=== PATIENT | male | born 1965 | race Caucasian/White ===

== ENCOUNTER 2016-07-03 16:42 | Inpatient (IN) | payer MEDICARE, MEDICAID ==
[~2016-07-03] VITALS: Ht 177.8 cm; Wt 82.9 kg
[~2016-07-03 16:42] MED LIST: DIVA500T35 PO; OLAN10TA3 PO; OLAN5TAB2 PO; TRAZ-147 PO
[2016-07-03] MEDS ORDERED: INFLUENZA VIRUS VACCINE QVS 2016-17 (3YR+)/PF 60 MCG/0.5 ML SYRINGE IM ONE (17:30)
[2016-07-03] MEDS ORDERED: PNEUMOCOCCAL VACCINE POLYVALENT 0.5 ML VIAL [PPSV23] IM ONE (17:30)
[2016-07-03 17:42] VITALS: BP 118/72
[2016-07-03] MEDS: LORazepam 2 MG TABLET PO PRN (18:25)
[2016-07-03] MEDS: HALOPERIDOL 5 MG TABLET PO PRN (18:25)
[2016-07-03] MEDS ORDERED: NYSTATIN 30 GM CREAM TP PRN (18:30)
[2016-07-04 07:14] VITALS: BP 108/73
[2016-07-04 08:16] VITALS: BP 110/64
[2016-07-04 08:19] LABS: BASOPHILS % (AUTO) 0.7 % (0.0-2.0); EOSINOPHILS % (AUTO) 2.6 % (1.0-6.0); HEMATOCRIT 43.2 % (41-53); HEMOGLOBIN 14.2 g/dL (13.5-17.5); LYMPHOCYTES # (AUTO) 1.7 K/uL (1.0-4.8); LYMPHOCYTES % (AUTO) 23.1 % (22.0-44.0); MEAN CORPUSCULAR HEMOGLOBIN 29.2 pg (26.0-34.0); MEAN CORPUSCULAR HGB CONC 32.9 G/dL (31.0-37.0); MEAN CORPUSCULAR VOLUME 89 fL (80-100); MONOCYTES # (AUTO) 0.6 K/uL (0.1-1.0); MONOCYTES % (AUTO) 8.2 % (2.0-9.0); NEUTROPHILS # (AUTO) 4.7 K/uL (1.8-7.7); NEUTROPHILS % (AUTO) 65.4 % (40.0-70.0); PLATELET COUNT (AUTO) 283 K/uL (150-450); RED BLOOD CELL COUNT(AUTO) 4.87 MIL/uL (4.50-5.90); RED CELL DISTRIBUTION WIDTH 13.3 % (11.5-14.5); WHITE BLOOD COUNT (AUTO) 7.3 K/uL (4.5-11.0)
[2016-07-04 08:42] LABS: HEMOGLOBIN A1C 5.7 % (4.5-6.2)
[2016-07-04 09:14] LABS: ALANINE AMINOTRANSFERASE 21 U/L (12-78); ALBUMIN 3.3 g/dL (3.4-5.0); ANION GAP 6 mmol/L (8-16); ASPARTATE AMINOTRANSFERASE 16 U/L (15-37); BILIRUBIN,TOTAL 0.4 mg/dL (0.1-1.0); CALCIUM, TOTAL 8.9 mg/dL (8.8-10.5); CARBON DIOXIDE 32 mmol/L (22-29); CHLORIDE 101 mmol/L (98-107); CHOL/HDL RATIO 3.7 (4.2-7.3); GLOMERULAR FILTR. RATE CALC > 60 mL/min (>60); SODIUM SERUM 139 mmol/L (136-145); TOTAL PROTEIN, SERUM 6.2 g/dL (6.4-8.2); UREA NITROGEN, BLOOD 16 mg/dL (7-18)
[2016-07-04 09:30] LABS: APPEARANCE,URINE CLOUDY (CLEAR); GLUCOSE, URINE (UA) NEGATIVE (NEGATIVE); KETONES,URINE TRACE mg/dL (NEGATIVE); LEUKOCYTE ESTERASE ,URINE TRACE (NEGATIVE); OCCULT BLOOD,URINE NEGATIVE (NEGATIVE); PH,URINE 5.5 (5.0-8.0); PROTEIN,URINE NEGATIVE (NEGATIVE)
[2016-07-04 09:31] LABS: ADD UA MICROSCOPIC YES
[2016-07-04 09:33] LABS: RBC,URINE None Seen /HPF (0-2); SQUAMOUS EPITHELIAL CELL,UR Few /LPF (None Seen); WBC,URINE 0-2 /HPF (0-5)
[2016-07-04 10:17] LABS: THYROID STIMULATING HORMONE 1.07 uIU/mL (0.36-3.74)
[2016-07-04] MEDS: HALOPERIDOL 5 MG TABLET PO PRN ×2 (10:44→16:44)
[2016-07-04] MEDS: LORazepam 2 MG TABLET PO PRN ×2 (10:44→16:44)
[2016-07-04] MEDS: DIVALPROEX SODIUM 500 MG DR TABLET PO SCH ×2 (13:10→16:44)
[2016-07-04] MEDS ORDERED: IBUPROFEN 400 MG TABLET PO PRN (13:45)
[2016-07-04] MEDS ORDERED: ACETAMINOPHEN 325 MG TABLET PO PRN (13:45)
[2016-07-04] MEDS ORDERED: ALBUTEROL SULFATE HFA 90 MCG/PUFF 8 GM INHALER IH PRN (13:45)
[2016-07-04 16:03] VITALS: BP 118/70
[2016-07-04] MEDS: CIPROFLOXACIN HCL 250 MG TABLET PO SCH (16:44)
[2016-07-04] MEDS: OLANZapine 10 MG TABLET PO SCH (20:37)
[2016-07-05 06:50] VITALS: BP 117/67
[2016-07-05 08:38] VITALS: BP 114/65
[2016-07-05] MEDS: HALOPERIDOL 5 MG TABLET PO PRN ×2 (08:52→16:40)
[2016-07-05] MEDS: LORazepam 2 MG TABLET PO PRN ×2 (08:52→16:40)
[2016-07-05] MEDS: CIPROFLOXACIN HCL 250 MG TABLET PO SCH ×2 (08:52→16:40)
[2016-07-05] MEDS: DIVALPROEX SODIUM 500 MG DR TABLET PO SCH ×3 (08:52→16:40)
[2016-07-05 10:29] LABS: HEMOGLOBIN A1C 5.8 % (4.5-6.2)
[2016-07-05 10:39] LABS: CHOL/HDL RATIO 3.5 (4.2-7.3); THYROID STIMULATING HORMONE 2.32 uIU/mL (0.36-3.74)
[2016-07-05 16:08] VITALS: BP 122/74
[2016-07-05] MEDS: OLANZapine 10 MG TABLET PO SCH (20:29)
[2016-07-06 06:25] VITALS: BP 122/70
[2016-07-06] MEDS: DIVALPROEX SODIUM 500 MG DR TABLET PO SCH ×3 (08:09→17:00)
[2016-07-06] MEDS: CIPROFLOXACIN HCL 250 MG TABLET PO SCH ×2 (08:09→17:00)
[2016-07-06 08:49] VITALS: BP 116/61
[2016-07-06] MEDS: NICOTINE 21 MG/24 HOUR PATCH TD SCH (11:09)
[2016-07-06] MEDS: OLANZapine 10 MG TABLET PO SCH (21:00)
[2016-07-07] MEDS: DIVALPROEX SODIUM 500 MG DR TABLET PO SCH ×3 (09:00→17:00)
[2016-07-07] MEDS: CIPROFLOXACIN HCL 250 MG TABLET PO SCH ×2 (09:00→17:00)
[2016-07-07] MEDS: NICOTINE 21 MG/24 HOUR PATCH TD SCH (09:00)
[2016-07-07] MEDS: OLANZapine 10 MG TABLET PO SCH (21:00)
[2016-07-08 06:56] VITALS: BP 110/62
[2016-07-08 08:12] VITALS: BP 110/60
[2016-07-08] MEDS: CIPROFLOXACIN HCL 250 MG TABLET PO SCH ×2 (09:00→16:14)
[2016-07-08] MEDS: DIVALPROEX SODIUM 500 MG DR TABLET PO SCH ×3 (09:00→16:13)
[2016-07-08] MEDS: NICOTINE 21 MG/24 HOUR PATCH TD SCH (10:07)
[2016-07-08] MEDS: HALOPERIDOL 5 MG TABLET PO PRN ×2 (10:08→16:36)
[2016-07-08] MEDS: LORazepam 2 MG TABLET PO PRN ×2 (10:08→16:14)
[2016-07-08 16:00] VITALS: BP 104/60
[2016-07-08] MEDS: OLANZapine 10 MG TABLET PO SCH (20:11)
[2016-07-08] MEDS: ZOLPIDEM TARTRATE 10 MG TABLET PO PRN (21:26)
[2016-07-09 06:30] VITALS: BP 116/76
[2016-07-09 08:11] VITALS: BP 101/58
[2016-07-09] MEDS: CIPROFLOXACIN HCL 250 MG TABLET PO SCH ×2 (09:42→17:18)
[2016-07-09] MEDS: NICOTINE 21 MG/24 HOUR PATCH TD SCH (09:43)
[2016-07-09] MEDS: DIVALPROEX SODIUM 500 MG DR TABLET PO SCH ×3 (09:43→17:18)
[2016-07-09 16:07] VITALS: BP 161/85
[2016-07-09] MEDS: LORazepam 2 MG TABLET PO PRN (17:18)
[2016-07-09] MEDS: HALOPERIDOL 5 MG TABLET PO PRN (17:18)
[2016-07-09] MEDS: OLANZapine 10 MG TABLET PO SCH (20:34)
[2016-07-10 06:25] VITALS: BP 110/60
[2016-07-10 08:11] VITALS: BP 108/62
[2016-07-10] MEDS: NICOTINE 21 MG/24 HOUR PATCH TD SCH (09:46)
[2016-07-10] MEDS: DIVALPROEX SODIUM 500 MG DR TABLET PO SCH ×3 (09:46→17:05)
[2016-07-10] MEDS: CIPROFLOXACIN HCL 250 MG TABLET PO SCH ×2 (09:46→17:05)
[2016-07-10] MEDS: LORazepam 2 MG TABLET PO PRN ×2 (09:46→17:06)
[2016-07-10] MEDS: HALOPERIDOL 5 MG TABLET PO PRN ×2 (09:46→17:06)
[2016-07-10 16:14] VITALS: BP 115/76
[2016-07-10] MEDS: OLANZapine 10 MG TABLET PO SCH (20:28)
[2016-07-11 07:05] VITALS: BP 109/61
[2016-07-11 08:11] VITALS: BP 105/57
[2016-07-11] MEDS: CIPROFLOXACIN HCL 250 MG TABLET PO SCH ×2 (09:26→16:43)
[2016-07-11] MEDS: DIVALPROEX SODIUM 500 MG DR TABLET PO SCH ×3 (09:26→16:43)
[2016-07-11] MEDS: NICOTINE 21 MG/24 HOUR PATCH TD SCH (09:26)
[2016-07-11 16:11] VITALS: BP 122/71
[2016-07-11] MEDS: LORazepam 2 MG TABLET PO PRN (16:43)
[2016-07-11] MEDS: HALOPERIDOL 5 MG TABLET PO PRN (16:43)
[2016-07-11] MEDS: OLANZapine 10 MG TABLET PO SCH (20:55)
[2016-07-12 05:41] VITALS: BP 115/69
[2016-07-12 08:20] VITALS: BP 117/57
[2016-07-12] MEDS: HALOPERIDOL 5 MG TABLET PO PRN (08:32)
[2016-07-12] MEDS: DIVALPROEX SODIUM 500 MG DR TABLET PO SCH ×3 (08:32→17:35)
[2016-07-12] MEDS: CIPROFLOXACIN HCL 250 MG TABLET PO SCH ×2 (08:32→17:35)
[2016-07-12] MEDS: NICOTINE 21 MG/24 HOUR PATCH TD SCH (08:33)
[2016-07-12 16:10] VITALS: BP 135/69
[2016-07-12] MEDS: LORazepam 2 MG TABLET PO PRN (17:35)
[2016-07-12] MEDS: ZOLPIDEM TARTRATE 10 MG TABLET PO PRN (20:44)
[2016-07-12] MEDS: OLANZapine 10 MG TABLET PO SCH (20:44)
[2016-07-13 05:37] VITALS: BP 132/75
[2016-07-13 08:32] VITALS: BP 104/61
[2016-07-13] MEDS: NICOTINE 21 MG/24 HOUR PATCH TD SCH (09:56)
[2016-07-13] MEDS: CIPROFLOXACIN HCL 250 MG TABLET PO SCH ×2 (09:56→17:32)
[2016-07-13] MEDS: DIVALPROEX SODIUM 500 MG DR TABLET PO SCH ×3 (09:56→17:32)
[2016-07-13 16:27] VITALS: BP 125/66
[2016-07-13] MEDS: OLANZapine 10 MG TABLET PO SCH (20:20)
[2016-07-13] MEDS: ZOLPIDEM TARTRATE 10 MG TABLET PO PRN (20:20)
[2016-07-14 00:20] VITALS: BP 126/75
[2016-07-14] MEDS: LORazepam 2 MG TABLET PO PRN ×3 (00:25→16:45)
[2016-07-14 08:37] VITALS: BP 118/73
[2016-07-14] MEDS: HALOPERIDOL 5 MG TABLET PO PRN ×2 (10:05→16:45)
[2016-07-14] MEDS: NICOTINE 21 MG/24 HOUR PATCH TD SCH (10:05)
[2016-07-14] MEDS: CIPROFLOXACIN HCL 250 MG TABLET PO SCH ×2 (10:05→16:45)
[2016-07-14] MEDS: DIVALPROEX SODIUM 500 MG DR TABLET PO SCH ×3 (10:05→16:45)
[2016-07-14 16:18] VITALS: BP 123/61
[2016-07-14] MEDS: ZOLPIDEM TARTRATE 10 MG TABLET PO PRN (20:52)
[2016-07-14] MEDS: OLANZapine 10 MG TABLET PO SCH (20:52)
[2016-07-15 01:00] VITALS: BP 108/74
[2016-07-15] MEDS: HALOPERIDOL 5 MG TABLET PO PRN ×2 (01:04→17:14)
[2016-07-15] MEDS: LORazepam 2 MG TABLET PO PRN ×2 (01:04→17:14)
[2016-07-15 08:11] VITALS: BP 101/65
[2016-07-15] MEDS: DIVALPROEX SODIUM 500 MG DR TABLET PO SCH ×3 (09:51→17:14)
[2016-07-15] MEDS: NICOTINE 21 MG/24 HOUR PATCH TD SCH (09:51)
[2016-07-15 16:00] VITALS: BP 110/68
[2016-07-15] MEDS: OLANZapine 10 MG TABLET PO SCH (20:37)
[2016-07-15] MEDS: ZOLPIDEM TARTRATE 10 MG TABLET PO PRN (20:37)
[2016-07-16 02:49] VITALS: BP 108/72
[2016-07-16] MEDS: LORazepam 2 MG TABLET PO PRN ×3 (02:52→16:49)
[2016-07-16 08:11] VITALS: BP 112/65
[2016-07-16] MEDS: DIVALPROEX SODIUM 500 MG DR TABLET PO SCH ×3 (08:16→16:49)
[2016-07-16] MEDS: NICOTINE 21 MG/24 HOUR PATCH TD SCH (08:17)
[2016-07-16 16:40] VITALS: BP 116/68
[2016-07-16] MEDS: HALOPERIDOL 5 MG TABLET PO PRN (16:49)
[2016-07-16] MEDS: OLANZapine 10 MG TABLET PO SCH (20:25)
[2016-07-17] MEDS: ZOLPIDEM TARTRATE 10 MG TABLET PO PRN (00:08)
[2016-07-17] MEDS: LORazepam 2 MG TABLET PO PRN ×2 (00:08→17:13)
[2016-07-17 00:09] VITALS: BP 109/79
[2016-07-17] MEDS: HALOPERIDOL 5 MG TABLET PO PRN ×2 (00:09→17:13)
[2016-07-17 08:40] VITALS: BP 93/50
[2016-07-17] MEDS: DIVALPROEX SODIUM 500 MG DR TABLET PO SCH ×3 (10:03→16:52)
[2016-07-17] MEDS: NICOTINE 21 MG/24 HOUR PATCH TD SCH (10:03)
[2016-07-17 16:12] VITALS: BP 128/74
[2016-07-17] MEDS: OLANZapine 10 MG TABLET PO SCH (20:52)
[2016-07-18 05:30] VITALS: BP 120/64
[2016-07-18 08:11] VITALS: BP 115/64
[2016-07-18] MEDS: NICOTINE 21 MG/24 HOUR PATCH TD SCH (09:32)
[2016-07-18] MEDS: HALOPERIDOL 5 MG TABLET PO PRN ×2 (09:33→16:39)
[2016-07-18] MEDS: LORazepam 2 MG TABLET PO PRN ×3 (09:33→20:49)
[2016-07-18] MEDS: DIVALPROEX SODIUM 500 MG DR TABLET PO SCH ×3 (09:33→16:39)
[2016-07-18 16:12] VITALS: BP 125/73
[2016-07-18] MEDS: ZOLPIDEM TARTRATE 10 MG TABLET PO PRN (20:49)
[2016-07-18] MEDS: OLANZapine 10 MG TABLET PO SCH (21:00)
[2016-07-19 05:27] VITALS: BP 143/67
[2016-07-19 08:11] VITALS: BP 140/84
[2016-07-19] MEDS: LORazepam 2 MG TABLET PO PRN ×2 (10:00→16:36)
[2016-07-19] MEDS: HALOPERIDOL 5 MG TABLET PO PRN ×2 (10:00→16:36)
[2016-07-19] MEDS: DIVALPROEX SODIUM 500 MG DR TABLET PO SCH ×3 (10:00→16:36)
[2016-07-19] MEDS: NICOTINE 21 MG/24 HOUR PATCH TD SCH (10:01)
[2016-07-19 16:30] VITALS: BP 108/85
[2016-07-19] MEDS: OLANZapine 10 MG TABLET PO SCH (20:41)
[2016-07-20] MEDS: LORazepam 2 MG TABLET PO PRN ×3 (00:07→16:35)
[2016-07-20] MEDS: ZOLPIDEM TARTRATE 10 MG TABLET PO PRN (00:07)
[2016-07-20] MEDS: HALOPERIDOL 5 MG TABLET PO PRN ×2 (00:07→16:35)
[2016-07-20 00:08] VITALS: BP 112/62
[2016-07-20 08:11] VITALS: BP 107/68
[2016-07-20] MEDS: NICOTINE 21 MG/24 HOUR PATCH TD SCH (08:35)
[2016-07-20] MEDS: DIVALPROEX SODIUM 500 MG DR TABLET PO SCH ×3 (08:35→16:35)
[2016-07-20 16:57] VITALS: BP 122/68
[2016-07-20] MEDS: OLANZapine 10 MG TABLET PO SCH (20:12)
[2016-07-21 00:06] VITALS: BP 108/66
[2016-07-21] MEDS: ZOLPIDEM TARTRATE 10 MG TABLET PO PRN (00:10)
[2016-07-21 08:10] VITALS: BP 115/68
[2016-07-21] MEDS: HALOPERIDOL 5 MG TABLET PO PRN ×2 (09:35→16:25)
[2016-07-21] MEDS: NICOTINE 21 MG/24 HOUR PATCH TD SCH (09:35)
[2016-07-21] MEDS: LORazepam 2 MG TABLET PO PRN ×2 (09:35→16:25)
[2016-07-21] MEDS: DIVALPROEX SODIUM 500 MG DR TABLET PO SCH ×3 (09:35→16:25)
[2016-07-21 17:03] VITALS: BP 114/66
[2016-07-21] MEDS: OLANZapine 10 MG TABLET PO SCH (20:44)
[2016-07-22 00:20] VITALS: BP 108/68
[2016-07-22] MEDS: LORazepam 2 MG TABLET PO PRN ×3 (07:14→17:18)
[2016-07-22] MEDS: HALOPERIDOL 5 MG TABLET PO PRN ×3 (07:14→17:18)
[2016-07-22 08:11] VITALS: BP 128/56
[2016-07-22] MEDS: NICOTINE 21 MG/24 HOUR PATCH TD SCH (09:27)
[2016-07-22] MEDS: DIVALPROEX SODIUM 500 MG DR TABLET PO SCH ×3 (09:27→16:38)
[2016-07-22 16:11] VITALS: BP 126/60
[2016-07-22] MEDS: OLANZapine 10 MG TABLET PO SCH (20:56)
[2016-07-23 03:45] VITALS: BP 106/68
[2016-07-23] MEDS: LORazepam 2 MG TABLET PO PRN ×3 (03:55→16:12)
[2016-07-23] MEDS: HALOPERIDOL 5 MG TABLET PO PRN ×3 (03:55→16:12)
[2016-07-23 08:11] VITALS: BP 134/75
[2016-07-23] MEDS: NICOTINE 21 MG/24 HOUR PATCH TD SCH (09:35)
[2016-07-23] MEDS: DIVALPROEX SODIUM 500 MG DR TABLET PO SCH ×3 (09:35→16:50)
[2016-07-23] MEDS ORDERED: TUBERCULIN, PURIFIED PROTEIN DERIVATIVE 5 TU/0.1 ML SYG ID ONE (15:00)
[2016-07-23 16:00] VITALS: BP 130/84
[2016-07-23] MEDS: OLANZapine 10 MG TABLET PO SCH (20:38)
[2016-07-24 06:00] VITALS: BP 122/77
[2016-07-24] MEDS: LORazepam 2 MG TABLET PO PRN (06:45)
[2016-07-24] MEDS: HALOPERIDOL 5 MG TABLET PO PRN (06:46)
[2016-07-24 08:25] VITALS: BP 103/60
[2016-07-24] MEDS: NICOTINE 21 MG/24 HOUR PATCH TD SCH (08:44)
[2016-07-24] MEDS: DIVALPROEX SODIUM 500 MG DR TABLET PO SCH ×3 (08:44→16:51)
[2016-07-24 16:11] VITALS: BP 114/76
[2016-07-24 17:33] VITALS: BP 116/66
[2016-07-24] MEDS: OLANZapine 10 MG TABLET PO SCH (20:46)
[2016-07-24] MEDS: ZOLPIDEM TARTRATE 10 MG TABLET PO PRN (20:46)
[2016-07-25 01:29] VITALS: BP 114/68
[2016-07-25 08:11] VITALS: BP 112/70
[2016-07-25] MEDS: NICOTINE 21 MG/24 HOUR PATCH TD SCH (09:05)
[2016-07-25] MEDS: DIVALPROEX SODIUM 500 MG DR TABLET PO SCH ×3 (09:05→16:47)
[2016-07-25] MEDS: LORazepam 2 MG TABLET PO PRN ×2 (09:09→16:47)
[2016-07-25] MEDS: HALOPERIDOL 5 MG TABLET PO PRN ×2 (09:09→16:47)
[2016-07-25 16:42] VITALS: BP 136/84
[2016-07-25] MEDS: OLANZapine 10 MG TABLET PO SCH (20:41)
[2016-07-26 07:10] VITALS: BP 129/81
[2016-07-26 08:11] VITALS: BP 112/60
[2016-07-26] MEDS: DIVALPROEX SODIUM 500 MG DR TABLET PO SCH ×3 (09:16→16:00)
[2016-07-26] MEDS: NICOTINE 21 MG/24 HOUR PATCH TD SCH (09:16)
[2016-07-26] MEDS: HALOPERIDOL 5 MG TABLET PO PRN (16:00)
[2016-07-26] MEDS: LORazepam 2 MG TABLET PO PRN (16:00)
[2016-07-26 16:14] VITALS: BP 122/62
[2016-07-26] MEDS: OLANZapine 10 MG TABLET PO SCH (20:25)
[2016-07-26] MEDS: ZOLPIDEM TARTRATE 10 MG TABLET PO PRN (21:03)
[2016-07-27 06:25] VITALS: BP 126/78
[2016-07-27 08:34] VITALS: BP 123/68
[2016-07-27] MEDS: DIVALPROEX SODIUM 500 MG DR TABLET PO SCH ×3 (08:42→16:30)
[2016-07-27] MEDS: NICOTINE 21 MG/24 HOUR PATCH TD SCH (08:42)
[2016-07-27] MEDS: LORazepam 2 MG TABLET PO PRN ×2 (09:06→16:30)
[2016-07-27] MEDS: HALOPERIDOL 5 MG TABLET PO PRN ×2 (09:06→16:30)
[2016-07-27 16:00] VITALS: BP 138/76
[2016-07-27] MEDS: ZOLPIDEM TARTRATE 10 MG TABLET PO PRN (21:18)
[2016-07-27] MEDS: OLANZapine 10 MG TABLET PO SCH (21:18)
[2016-07-28 00:14] VITALS: BP 116/70
[2016-07-28 08:09] VITALS: BP 119/63
[2016-07-28] MEDS: DIVALPROEX SODIUM 500 MG DR TABLET PO SCH ×3 (08:58→16:49)
[2016-07-28] MEDS: NICOTINE 21 MG/24 HOUR PATCH TD SCH (08:58)
[2016-07-28 16:14] VITALS: BP 137/80
[2016-07-28] MEDS: OLANZapine 10 MG TABLET PO SCH (20:15)
[2016-07-29 01:58] VITALS: BP 135/94
[2016-07-29] MEDS: ZOLPIDEM TARTRATE 10 MG TABLET PO PRN ×2 (01:58→21:17)
[2016-07-29] MEDS: HALOPERIDOL 5 MG TABLET PO PRN ×3 (01:58→16:10)
[2016-07-29] MEDS: LORazepam 2 MG TABLET PO PRN ×3 (01:58→16:10)
[2016-07-29] MEDS: DIVALPROEX SODIUM 500 MG DR TABLET PO SCH ×3 (08:19→16:10)
[2016-07-29] MEDS: NICOTINE 21 MG/24 HOUR PATCH TD SCH (08:24)
[2016-07-29 08:27] VITALS: BP 100/60
[2016-07-29 16:00] VITALS: BP 108/60
[2016-07-29] MEDS: OLANZapine 10 MG TABLET PO SCH (20:33)
[2016-07-30 03:17] VITALS: BP 125/67
[2016-07-30 08:11] VITALS: BP 112/68
[2016-07-30] MEDS: DIVALPROEX SODIUM 500 MG DR TABLET PO SCH ×3 (09:07→16:12)
[2016-07-30] MEDS: NICOTINE 21 MG/24 HOUR PATCH TD SCH (09:07)
[2016-07-30 16:00] VITALS: BP 129/75
[2016-07-30] MEDS: OLANZapine 10 MG TABLET PO SCH (20:33)
[2016-07-30] MEDS: ZOLPIDEM TARTRATE 10 MG TABLET PO PRN (21:25)
[2016-07-31 06:35] VITALS: BP 125/77
[2016-07-31] MEDS: HALOPERIDOL 5 MG TABLET PO PRN ×2 (06:47→13:42)
[2016-07-31] MEDS: LORazepam 2 MG TABLET PO PRN ×2 (06:47→13:42)
[2016-07-31 08:11] VITALS: BP 100/50
[2016-07-31] MEDS: NICOTINE 21 MG/24 HOUR PATCH TD SCH (09:43)
[2016-07-31] MEDS: DIVALPROEX SODIUM 500 MG DR TABLET PO SCH ×3 (09:43→16:15)
[2016-07-31 16:00] VITALS: BP 135/83
[2016-07-31] MEDS: OLANZapine 10 MG TABLET PO SCH (20:23)
[2016-07-31] MEDS: ZOLPIDEM TARTRATE 10 MG TABLET PO PRN (20:23)
[2016-08-01 06:56] VITALS: BP 103/64
[2016-08-01 08:11] VITALS: BP 125/76
[2016-08-01] MEDS: LORazepam 2 MG TABLET PO PRN ×2 (10:12→16:20)
[2016-08-01] MEDS: DIVALPROEX SODIUM 500 MG DR TABLET PO SCH ×3 (10:12→16:20)
[2016-08-01] MEDS: NICOTINE 21 MG/24 HOUR PATCH TD SCH (10:13)
[2016-08-01 16:08] VITALS: BP 112/72
[2016-08-01] MEDS: HALOPERIDOL 5 MG TABLET PO PRN (16:20)
[2016-08-01] MEDS: OLANZapine 10 MG TABLET PO SCH (20:33)
[2016-08-02 02:00] VITALS: BP 113/61
[2016-08-02 08:10] VITALS: BP 138/84
[2016-08-02] MEDS: DIVALPROEX SODIUM 500 MG DR TABLET PO SCH ×3 (09:23→16:26)
[2016-08-02] MEDS: LORazepam 2 MG TABLET PO PRN ×2 (09:23→16:26)
[2016-08-02] MEDS: HALOPERIDOL 5 MG TABLET PO PRN ×2 (09:23→16:26)
[2016-08-02] MEDS: NICOTINE 21 MG/24 HOUR PATCH TD SCH (09:23)
[2016-08-02 16:10] VITALS: BP 126/69
[2016-08-02] MEDS: OLANZapine 10 MG TABLET PO SCH (20:42)
[2016-08-03 01:45] VITALS: BP 115/70
[2016-08-03] MEDS: LORazepam 2 MG TABLET PO PRN ×3 (06:40→16:22)
[2016-08-03] MEDS: HALOPERIDOL 5 MG TABLET PO PRN ×3 (06:40→16:22)
[2016-08-03 08:11] VITALS: BP 101/52
[2016-08-03] MEDS: DIVALPROEX SODIUM 500 MG DR TABLET PO SCH ×3 (08:24→16:22)
[2016-08-03] MEDS: NICOTINE 21 MG/24 HOUR PATCH TD SCH (08:25)
[2016-08-03] MEDS ORDERED: DiphenhydrAMINE HCL 50 MG/ML VIAL IM ONE (11:15)
[2016-08-03] MEDS ORDERED: LORazepam 2 MG/ML VIAL IM ONE (11:15)
[2016-08-03] MEDS ORDERED: HALOPERIDOL LACTATE 5 MG/ML VIAL IM ONE (11:15)
[2016-08-03 16:00] VITALS: BP 138/79
[2016-08-03] MEDS: OLANZapine 10 MG TABLET PO SCH (20:36)
[2016-08-04 05:52] VITALS: BP 111/64
[2016-08-04 08:30] VITALS: BP 126/75
[2016-08-04] MEDS: HALOPERIDOL 5 MG TABLET PO PRN ×2 (09:20→16:17)
[2016-08-04] MEDS: LORazepam 2 MG TABLET PO PRN ×2 (09:20→16:17)
[2016-08-04] MEDS: NICOTINE 21 MG/24 HOUR PATCH TD SCH (09:20)
[2016-08-04] MEDS: DIVALPROEX SODIUM 500 MG DR TABLET PO SCH ×3 (09:20→16:17)
[2016-08-04 16:00] VITALS: BP 134/61
[2016-08-04] MEDS: OLANZapine 10 MG TABLET PO SCH (20:46)
[2016-08-05 04:19] VITALS: BP 122/67
[2016-08-05 08:08] VITALS: BP 108/66
[2016-08-05] MEDS: DIVALPROEX SODIUM 500 MG DR TABLET PO SCH ×3 (08:17→16:27)
[2016-08-05] MEDS: NICOTINE 21 MG/24 HOUR PATCH TD SCH (08:17)
[2016-08-05] MEDS: HALOPERIDOL 5 MG TABLET PO PRN (16:28)
[2016-08-05] MEDS: LORazepam 2 MG TABLET PO PRN ×2 (16:28→20:42)
[2016-08-05 16:47] VITALS: BP 150/71
[2016-08-05] MEDS: OLANZapine 10 MG TABLET PO SCH (20:23)
[2016-08-06 00:28] VITALS: BP 131/74
[2016-08-06] MEDS: DIVALPROEX SODIUM 500 MG DR TABLET PO SCH ×3 (08:01→16:52)
[2016-08-06] MEDS: NICOTINE 21 MG/24 HOUR PATCH TD SCH (08:01)
[2016-08-06 08:51] VITALS: BP 123/73
[2016-08-06] MEDS: HALOPERIDOL 5 MG TABLET PO PRN ×2 (12:53→16:53)
[2016-08-06] MEDS: LORazepam 2 MG TABLET PO PRN ×2 (12:53→16:53)
[2016-08-06 16:00] VITALS: BP 114/71
[2016-08-06] MEDS: OLANZapine 10 MG TABLET PO SCH (20:33)
[2016-08-07 07:11] VITALS: BP 136/68
[2016-08-07 08:04] VITALS: BP 122/78
[2016-08-07] MEDS: DIVALPROEX SODIUM 500 MG DR TABLET PO SCH ×3 (09:48→16:28)
[2016-08-07] MEDS: LORazepam 2 MG TABLET PO PRN ×2 (09:49→16:29)
[2016-08-07] MEDS: HALOPERIDOL 5 MG TABLET PO PRN ×2 (09:49→16:28)
[2016-08-07] MEDS: NICOTINE 21 MG/24 HOUR PATCH TD SCH (09:49)
[2016-08-07 16:00] VITALS: BP 112/74
[2016-08-07] MEDS: OLANZapine 10 MG TABLET PO SCH (20:18)
[2016-08-08 06:54] VITALS: BP 123/75
[2016-08-08 08:11] VITALS: BP 122/78
[2016-08-08] MEDS: DIVALPROEX SODIUM 500 MG DR TABLET PO SCH ×3 (09:36→16:24)
[2016-08-08] MEDS: NICOTINE 21 MG/24 HOUR PATCH TD SCH (09:37)
[2016-08-08] MEDS: LORazepam 2 MG TABLET PO PRN (09:37)
[2016-08-08] MEDS: HALOPERIDOL 5 MG TABLET PO PRN (09:37)
[2016-08-08] MEDS: BENZOCAINE/MENTHOL LOZENGE PO PRN ×2 (15:01→22:20)
[2016-08-08 16:21] VITALS: BP 131/70
[2016-08-08] MEDS: OLANZapine 10 MG TABLET PO SCH (20:35)
[2016-08-09] MEDS: BENZOCAINE/MENTHOL LOZENGE PO PRN ×2 (06:48→17:02)
[2016-08-09 08:28] VITALS: BP 123/70
[2016-08-09] MEDS: DIVALPROEX SODIUM 500 MG DR TABLET PO SCH ×3 (08:43→17:01)
[2016-08-09] MEDS: LORazepam 2 MG TABLET PO PRN ×3 (08:43→17:51)
[2016-08-09] MEDS: NICOTINE 21 MG/24 HOUR PATCH TD SCH (08:44)
[2016-08-09 16:15] VITALS: BP 128/73
[2016-08-09] MEDS: OLANZapine 10 MG TABLET PO SCH (20:55)
[2016-08-10 08:21] VITALS: BP 120/62
[2016-08-10] MEDS: DIVALPROEX SODIUM 500 MG DR TABLET PO SCH ×3 (09:34→16:22)
[2016-08-10] MEDS: NICOTINE 21 MG/24 HOUR PATCH TD SCH (09:35)
[2016-08-10] MEDS: HALOPERIDOL 5 MG TABLET PO PRN (09:35)
[2016-08-10] MEDS: LORazepam 2 MG TABLET PO PRN ×2 (09:35→16:22)
[2016-08-10] MEDS: BENZOCAINE/MENTHOL LOZENGE PO PRN (14:29)
[2016-08-10 16:12] VITALS: BP 106/65
[2016-08-10] MEDS: OLANZapine 10 MG TABLET PO SCH (20:17)
[2016-08-11 05:54] VITALS: BP 115/75
[2016-08-11 08:11] VITALS: BP 107/67
[2016-08-11] MEDS: HALOPERIDOL 5 MG TABLET PO PRN (09:52)
[2016-08-11] MEDS: DIVALPROEX SODIUM 500 MG DR TABLET PO SCH ×3 (09:52→16:36)
[2016-08-11] MEDS: LORazepam 2 MG TABLET PO PRN (09:52)
[2016-08-11] MEDS: NICOTINE 21 MG/24 HOUR PATCH TD SCH (09:53)
[2016-08-11] MEDS: BENZOCAINE/MENTHOL LOZENGE PO PRN ×2 (10:27→18:43)
[2016-08-11 16:29] VITALS: BP 120/79
[2016-08-11] MEDS: OLANZapine 10 MG TABLET PO SCH (20:37)
[2016-08-12 04:07] VITALS: BP 109/63
[2016-08-12] MEDS: DIVALPROEX SODIUM 500 MG DR TABLET PO SCH ×3 (08:24→16:19)
[2016-08-12] MEDS: LORazepam 2 MG TABLET PO PRN (08:24)
[2016-08-12] MEDS: NICOTINE 21 MG/24 HOUR PATCH TD SCH (08:30)
[2016-08-12] MEDS: BENZOCAINE/MENTHOL LOZENGE PO PRN (08:30)
[2016-08-12] MEDS ORDERED: SERTRALINE HCL 100 MG TABLET PO SCH (09:00)
[2016-08-12 09:03] VITALS: BP 106/67
[2016-08-12 16:00] VITALS: BP 126/74
[2016-08-12] MEDS: OLANZapine 10 MG TABLET PO SCH (20:20)
[2016-08-13 04:54] VITALS: BP 118/70
[2016-08-13] MEDS: DIVALPROEX SODIUM 500 MG DR TABLET PO SCH ×2 (08:47→12:50)
[2016-08-13] MEDS: NICOTINE 21 MG/24 HOUR PATCH TD SCH (08:48)
[2016-08-13 08:56] VITALS: BP 129/73
[2016-08-13] MEDS: BENZOCAINE/MENTHOL LOZENGE PO PRN (09:33)
[2016-08-13] MEDS: LORazepam 2 MG TABLET PO PRN (09:34)
[2016-08-13] MEDS ORDERED: OLAN10TA3 PO (15:46)
== END 2016-08-13 15:00 | DRG 885 ==
LOC: B3A 17:22 → EDSTATUS 17:28 → B2S 08-11 14:40
PROVIDERS: ADMIT Psychiatry & Neurology Psychiatry; ATTEND Psychiatry & Neurology Psychiatry
DX: F20.0 Paranoid schizophrenia (principal); N39.0 Urinary tract infection, site not specified; J44.9 Chronic obstructive pulmonary disease, unspecified; K21.9 Gastro-esophageal reflux disease without esophagitis; F19.10 Other psychoactive substance abuse, uncomplicated; F17.200 Nicotine dependence, unspecified, uncomplicated; Z91.14 Patient's other noncompliance with medication regimen; Z79.899 Other long term (current) drug therapy; Z71.51 Drug abuse counseling and surveillance of drug abuser; Z28.21 Immunization not carried out because of patient refusal
CPT/HCPCS: 83036; 84439; 84443; 87086; 90471; J1200; J1630; J2060

== ENCOUNTER 2016-08-13 13:36 | Inpatient (IN) | payer MEDICARE, MEDICAID ==
[~2016-08-13] VITALS: Ht 179.1 cm; Wt 86.4 kg
[2016-08-13] MEDS ORDERED: PNEUMOCOCCAL VACCINE POLYVALENT 0.5 ML VIAL [PPSV23] IM ONE (15:00)
[2016-08-13] MEDS ORDERED: INFLUENZA VIRUS VACCINE QVS 2016-17 (3YR+)/PF 60 MCG/0.5 ML SYRINGE IM ONE (15:00)
[2016-08-13] MEDS ORDERED: OLAN10TA3 PO (15:46)
[2016-08-13] MEDS ORDERED: ACETAMINOPHEN 325 MG TABLET PO PRN (16:15)
[2016-08-13] MEDS ORDERED: IBUPROFEN 400 MG TABLET PO PRN (16:15)
[2016-08-13] MEDS ORDERED: ALBUTEROL SULFATE HFA 90 MCG/PUFF 8 GM INHALER IH PRN (16:15)
[2016-08-13 16:17] VITALS: BP 104/74
[2016-08-13] MEDS: DIVALPROEX SODIUM 500 MG DR TABLET PO SCH (17:06)
[2016-08-13] MEDS: OLANZapine 10 MG TABLET PO SCH (20:42)
[2016-08-14] MEDS: LORazepam 2 MG TABLET PO PRN (03:18)
[2016-08-14 03:19] VITALS: BP 108/62
[2016-08-14 08:21] VITALS: BP 101/67
[2016-08-14] MEDS: DIVALPROEX SODIUM 500 MG DR TABLET PO SCH ×3 (08:39→17:02)
[2016-08-14] MEDS: NICOTINE 21 MG/24 HOUR PATCH TD SCH (08:39)
[2016-08-14 16:07] VITALS: BP 111/74
[2016-08-14] MEDS: OLANZapine 10 MG TABLET PO SCH (20:37)
[2016-08-14] MEDS: ZOLPIDEM TARTRATE 10 MG TABLET PO PRN (22:06)
[2016-08-15 06:10] VITALS: BP 110/68
[2016-08-15] MEDS: DIVALPROEX SODIUM 500 MG DR TABLET PO SCH ×3 (08:39→16:38)
[2016-08-15] MEDS: NICOTINE 21 MG/24 HOUR PATCH TD SCH (08:40)
[2016-08-15] MEDS: LORazepam 2 MG TABLET PO PRN ×2 (08:42→18:52)
[2016-08-15 09:04] VITALS: BP 139/70
[2016-08-15] MEDS: HALOPERIDOL 5 MG TABLET PO PRN ×2 (11:02→18:07)
[2016-08-15 16:10] VITALS: BP 120/78
[2016-08-15] MEDS: OLANZapine 10 MG TABLET PO SCH (20:34)
[2016-08-16 05:52] VITALS: BP 102/66
[2016-08-16 08:34] VITALS: BP 121/88
[2016-08-16] MEDS: DIVALPROEX SODIUM 500 MG DR TABLET PO SCH ×3 (09:33→16:34)
[2016-08-16] MEDS: NICOTINE 21 MG/24 HOUR PATCH TD SCH (09:34)
[2016-08-16] MEDS: LORazepam 2 MG TABLET PO PRN ×2 (09:38→13:49)
[2016-08-16] MEDS: HALOPERIDOL 5 MG TABLET PO PRN (11:38)
[2016-08-16 16:11] VITALS: BP 114/68
[2016-08-16] MEDS: OLANZapine 10 MG TABLET PO SCH (21:03)
[2016-08-17 06:47] VITALS: BP 93/56
[2016-08-17] MEDS: NICOTINE 21 MG/24 HOUR PATCH TD SCH (08:13)
[2016-08-17] MEDS: DIVALPROEX SODIUM 500 MG DR TABLET PO SCH ×3 (08:13→17:13)
[2016-08-17 08:33] VITALS: BP 137/72
[2016-08-17] MEDS: LORazepam 2 MG TABLET PO PRN (08:37)
[2016-08-17] MEDS: BENZOCAINE/MENTHOL LOZENGE PO PRN (10:47)
[2016-08-17] MEDS: HALOPERIDOL 5 MG TABLET PO PRN (12:48)
[2016-08-17] MEDS ORDERED: HALOPERIDOL LACTATE 5 MG/ML VIAL ONE (12:59)
[2016-08-17] MEDS ORDERED: LORazepam 2 MG/ML VIAL ONE (12:59)
[2016-08-17] MEDS ORDERED: DiphenhydrAMINE HCL 50 MG/ML VIAL ONE (12:59)
[2016-08-17] MEDS ORDERED: HALOPERIDOL LACTATE 5 MG/ML VIAL IM ONE ×2 (13:00→13:15)
[2016-08-17] MEDS ORDERED: DiphenhydrAMINE HCL 50 MG/ML VIAL IM ONE ×2 (13:00→13:15)
[2016-08-17] MEDS ORDERED: LORazepam 2 MG/ML VIAL IM ONE ×2 (13:00→13:15)
[2016-08-17 16:06] VITALS: BP_SYST 116; BP_SYST 118; BP_DIAS 67; BP_DIAS 71
[2016-08-17] MEDS: OLANZapine 10 MG TABLET PO SCH (20:27)
[2016-08-18 07:15] VITALS: BP 116/73
[2016-08-18] MEDS: LORazepam 2 MG TABLET PO PRN ×3 (07:25→16:58)
[2016-08-18 08:05] VITALS: BP 118/72
[2016-08-18] MEDS: DIVALPROEX SODIUM 500 MG DR TABLET PO SCH ×3 (08:38→16:58)
[2016-08-18] MEDS: NICOTINE 21 MG/24 HOUR PATCH TD SCH (08:38)
[2016-08-18] MEDS: HALOPERIDOL 5 MG TABLET PO PRN ×2 (09:25→13:25)
[2016-08-18] MEDS: BENZOCAINE/MENTHOL LOZENGE PO PRN (10:00)
[2016-08-18 16:12] VITALS: BP 126/75
[2016-08-18] MEDS: OLANZapine 10 MG TABLET PO SCH (20:19)
[2016-08-19 00:06] VITALS: BP 102/64
[2016-08-19] MEDS: BENZOCAINE/MENTHOL LOZENGE PO PRN ×2 (06:57→18:49)
[2016-08-19 08:09] VITALS: BP 103/62
[2016-08-19] MEDS: NICOTINE 21 MG/24 HOUR PATCH TD SCH (09:35)
[2016-08-19] MEDS: DIVALPROEX SODIUM 500 MG DR TABLET PO SCH ×3 (09:35→16:37)
[2016-08-19] MEDS: LORazepam 2 MG TABLET PO PRN ×2 (13:19→20:01)
[2016-08-19 16:10] VITALS: BP 102/60
[2016-08-19] MEDS: OLANZapine 10 MG TABLET PO SCH (20:31)
[2016-08-20] VITALS: BP 105/71
[2016-08-20 08:00] VITALS: BP 107/54
[2016-08-20] MEDS: DIVALPROEX SODIUM 500 MG DR TABLET PO SCH ×3 (09:12→16:41)
[2016-08-20] MEDS: LORazepam 2 MG TABLET PO PRN (09:12)
[2016-08-20] MEDS: NICOTINE 21 MG/24 HOUR PATCH TD SCH (09:12)
[2016-08-20 16:12] VITALS: BP 110/65
[2016-08-20] MEDS: BENZOCAINE/MENTHOL LOZENGE PO PRN (16:52)
[2016-08-20] MEDS: OLANZapine 10 MG TABLET PO SCH (20:39)
[2016-08-21 01:33] VITALS: BP 112/75
[2016-08-21] MEDS: DIVALPROEX SODIUM 500 MG DR TABLET PO SCH ×3 (09:15→16:36)
[2016-08-21] MEDS: NICOTINE 21 MG/24 HOUR PATCH TD SCH (09:15)
[2016-08-21 16:47] VITALS: BP 126/74
[2016-08-21] MEDS: OLANZapine 10 MG TABLET PO SCH (20:37)
[2016-08-21] MEDS: HALOPERIDOL 5 MG TABLET PO SCH (20:37)
[2016-08-21] MEDS: ZOLPIDEM TARTRATE 10 MG TABLET PO PRN (22:45)
[2016-08-21] MEDS: BENZOCAINE/MENTHOL LOZENGE PO PRN (22:46)
[2016-08-22 05:43] VITALS: BP 122/69
[2016-08-22 08:26] VITALS: BP 140/80
[2016-08-22] MEDS: NICOTINE 21 MG/24 HOUR PATCH TD SCH (09:24)
[2016-08-22] MEDS: DIVALPROEX SODIUM 500 MG DR TABLET PO SCH ×3 (09:24→16:36)
[2016-08-22] MEDS: LORazepam 2 MG TABLET PO PRN (09:27)
[2016-08-22 16:16] VITALS: BP 114/70
[2016-08-22] MEDS: BENZOCAINE/MENTHOL LOZENGE PO PRN (18:57)
[2016-08-22] MEDS: HALOPERIDOL 5 MG TABLET PO SCH (20:35)
[2016-08-22] MEDS: OLANZapine 10 MG TABLET PO SCH (20:36)
[2016-08-23 06:00] VITALS: BP 103/60
[2016-08-23 08:16] VITALS: BP 109/70
[2016-08-23] MEDS: NICOTINE 21 MG/24 HOUR PATCH TD SCH (09:17)
[2016-08-23] MEDS: DIVALPROEX SODIUM 500 MG DR TABLET PO SCH ×3 (09:17→16:38)
[2016-08-23 16:10] VITALS: BP 122/69
[2016-08-23] MEDS: BENZOCAINE/MENTHOL LOZENGE PO PRN (18:42)
[2016-08-23] MEDS: OLANZapine 10 MG TABLET PO SCH (20:35)
[2016-08-23] MEDS: HALOPERIDOL 5 MG TABLET PO SCH (20:35)
[2016-08-24 00:06] VITALS: BP 101/61
[2016-08-24 08:05] VITALS: BP 125/77
[2016-08-24] MEDS: LORazepam 2 MG TABLET PO PRN (08:06)
[2016-08-24] MEDS: NICOTINE 21 MG/24 HOUR PATCH TD SCH (08:06)
[2016-08-24] MEDS: DIVALPROEX SODIUM 500 MG DR TABLET PO SCH ×3 (08:06→16:34)
[2016-08-24 16:06] VITALS: BP 122/75
[2016-08-24] MEDS: BENZOCAINE/MENTHOL LOZENGE PO PRN (16:17)
[2016-08-24] MEDS: HALOPERIDOL 5 MG TABLET PO SCH (20:36)
[2016-08-24] MEDS: OLANZapine 10 MG TABLET PO SCH (20:36)
[2016-08-25 00:43] VITALS: BP 109/64
[2016-08-25 08:07] VITALS: BP 118/78
[2016-08-25] MEDS: DIVALPROEX SODIUM 500 MG DR TABLET PO SCH ×3 (10:26→16:58)
[2016-08-25] MEDS: NICOTINE 21 MG/24 HOUR PATCH TD SCH (10:28)
[2016-08-25 16:07] VITALS: BP 117/69
[2016-08-25] MEDS: BENZOCAINE/MENTHOL LOZENGE PO PRN (17:12)
[2016-08-25] MEDS: OLANZapine 10 MG TABLET PO SCH (20:27)
[2016-08-25] MEDS: HALOPERIDOL 5 MG TABLET PO SCH (20:28)
[2016-08-26 05:35] VITALS: BP 119/74
[2016-08-26 08:30] VITALS: BP 104/60
[2016-08-26] MEDS: DIVALPROEX SODIUM 500 MG DR TABLET PO SCH ×3 (09:21→17:04)
[2016-08-26] MEDS: NICOTINE 21 MG/24 HOUR PATCH TD SCH (09:21)
[2016-08-26] MEDS: LORazepam 2 MG TABLET PO PRN (13:13)
[2016-08-26 16:10] VITALS: BP 101/60
[2016-08-26] MEDS: HALOPERIDOL 5 MG TABLET PO SCH (20:22)
[2016-08-26] MEDS: OLANZapine 10 MG TABLET PO SCH (20:22)
[2016-08-27 02:34] VITALS: BP 114/73
[2016-08-27 08:26] VITALS: BP 116/63
[2016-08-27] MEDS: DIVALPROEX SODIUM 500 MG DR TABLET PO SCH ×3 (09:04→16:34)
[2016-08-27] MEDS: NICOTINE 21 MG/24 HOUR PATCH TD SCH (09:04)
[2016-08-27 16:00] VITALS: BP 128/68
[2016-08-27] MEDS: LORazepam 2 MG TABLET PO PRN (17:06)
[2016-08-27] MEDS: BENZOCAINE/MENTHOL LOZENGE PO PRN (18:52)
[2016-08-27] MEDS: HALOPERIDOL 5 MG TABLET PO SCH (20:35)
[2016-08-27] MEDS: OLANZapine 10 MG TABLET PO SCH (20:35)
[2016-08-28 03:13] VITALS: BP 101/60
[2016-08-28 08:31] VITALS: BP 118/79
[2016-08-28] MEDS: DIVALPROEX SODIUM 500 MG DR TABLET PO SCH ×3 (08:50→16:53)
[2016-08-28] MEDS: NICOTINE 21 MG/24 HOUR PATCH TD SCH (08:51)
[2016-08-28 16:17] VITALS: BP 108/69
[2016-08-28] MEDS: LORazepam 2 MG TABLET PO PRN (16:34)
[2016-08-28] MEDS: BENZOCAINE/MENTHOL LOZENGE PO PRN (17:59)
[2016-08-28] MEDS: HALOPERIDOL 5 MG TABLET PO SCH (20:38)
[2016-08-28] MEDS: OLANZapine 10 MG TABLET PO SCH (20:38)
[2016-08-29 00:01] VITALS: BP 104/64
[2016-08-29 08:08] VITALS: BP 108/68
[2016-08-29] MEDS: DIVALPROEX SODIUM 500 MG DR TABLET PO SCH ×3 (08:49→17:59)
[2016-08-29] MEDS: NICOTINE 21 MG/24 HOUR PATCH TD SCH (08:49)
[2016-08-29 16:30] VITALS: BP 119/75
[2016-08-29] MEDS: OLANZapine 10 MG TABLET PO SCH (20:35)
[2016-08-29] MEDS: HALOPERIDOL 5 MG TABLET PO SCH (20:36)
[2016-08-30 00:01] VITALS: BP 109/62
[2016-08-30 09:03] VITALS: BP 113/74
[2016-08-30] MEDS: NICOTINE 21 MG/24 HOUR PATCH TD SCH (09:11)
[2016-08-30] MEDS: DIVALPROEX SODIUM 500 MG DR TABLET PO SCH ×3 (09:11→16:49)
[2016-08-30 16:05] VITALS: BP 130/82
[2016-08-30] MEDS: LORazepam 2 MG TABLET PO PRN (16:31)
[2016-08-30] MEDS: OLANZapine 10 MG TABLET PO SCH (20:40)
[2016-08-30] MEDS: HALOPERIDOL 5 MG TABLET PO SCH (20:40)
[2016-08-31 06:17] VITALS: BP 94/60
[2016-08-31 09:02] VITALS: BP 118/65
[2016-08-31] MEDS: NICOTINE 21 MG/24 HOUR PATCH TD SCH (09:26)
[2016-08-31] MEDS: DIVALPROEX SODIUM 500 MG DR TABLET PO SCH ×3 (09:26→16:09)
[2016-08-31] MEDS: LORazepam 2 MG TABLET PO PRN (12:50)
[2016-08-31 16:20] VITALS: BP 113/74
[2016-08-31] MEDS: BENZOCAINE/MENTHOL LOZENGE PO PRN (18:06)
[2016-08-31] MEDS: OLANZapine 10 MG TABLET PO SCH (20:44)
[2016-08-31] MEDS: HALOPERIDOL 5 MG TABLET PO SCH (20:44)
[2016-09-01 06:54] VITALS: BP 113/71
[2016-09-01 08:48] VITALS: BP 120/74
[2016-09-01] MEDS: DIVALPROEX SODIUM 500 MG DR TABLET PO SCH ×3 (09:31→16:12)
[2016-09-01] MEDS: NICOTINE 21 MG/24 HOUR PATCH TD SCH (09:32)
[2016-09-01] MEDS: BENZOCAINE/MENTHOL LOZENGE PO PRN (13:04)
[2016-09-01 16:09] VITALS: BP 107/64
[2016-09-01] MEDS: HALOPERIDOL 5 MG TABLET PO SCH (20:12)
[2016-09-01] MEDS: OLANZapine 10 MG TABLET PO SCH (20:12)
[2016-09-02] MEDS: HALOPERIDOL 5 MG TABLET PO PRN (00:28)
[2016-09-02 00:58] VITALS: BP 116/76
[2016-09-02] MEDS: ZOLPIDEM TARTRATE 10 MG TABLET PO PRN ×2 (02:11→21:37)
[2016-09-02 08:22] VITALS: BP 102/62
[2016-09-02] MEDS: DIVALPROEX SODIUM 500 MG DR TABLET PO SCH ×3 (08:32→16:33)
[2016-09-02] MEDS: NICOTINE 21 MG/24 HOUR PATCH TD SCH (08:32)
[2016-09-02 16:06] VITALS: BP 103/68
[2016-09-02] MEDS: HALOPERIDOL 5 MG TABLET PO SCH (20:12)
[2016-09-02] MEDS: OLANZapine 10 MG TABLET PO SCH (20:12)
[2016-09-02] MEDS: BENZOCAINE/MENTHOL LOZENGE PO PRN (23:07)
[2016-09-03 00:07] VITALS: BP 109/65
[2016-09-03 08:07] VITALS: BP 121/74
[2016-09-03] MEDS: DIVALPROEX SODIUM 500 MG DR TABLET PO SCH ×3 (09:27→16:40)
[2016-09-03] MEDS: HALOPERIDOL 5 MG TABLET PO PRN (09:28)
[2016-09-03] MEDS: NICOTINE 21 MG/24 HOUR PATCH TD SCH (09:28)
[2016-09-03 16:13] VITALS: BP 132/85
[2016-09-03] MEDS: OLANZapine 10 MG TABLET PO SCH (20:32)
[2016-09-03] MEDS: HALOPERIDOL 5 MG TABLET PO SCH (20:32)
[2016-09-03] MEDS: LORazepam 2 MG TABLET PO PRN (20:51)
[2016-09-03] MEDS: ZOLPIDEM TARTRATE 10 MG TABLET PO PRN (21:52)
[2016-09-04 01:09] VITALS: BP 110/68
[2016-09-04 08:21] VITALS: BP 110/69
[2016-09-04] MEDS: DIVALPROEX SODIUM 500 MG DR TABLET PO SCH ×3 (09:04→16:37)
[2016-09-04] MEDS: NICOTINE 21 MG/24 HOUR PATCH TD SCH (09:05)
[2016-09-04 16:09] VITALS: BP 111/61
[2016-09-04] MEDS: HALOPERIDOL 5 MG TABLET PO SCH (20:35)
[2016-09-04] MEDS: OLANZapine 10 MG TABLET PO SCH (20:35)
[2016-09-05] VITALS: BP 125/71
[2016-09-05 08:06] VITALS: BP 102/65
[2016-09-05] MEDS: NICOTINE 21 MG/24 HOUR PATCH TD SCH (08:59)
[2016-09-05] MEDS: DIVALPROEX SODIUM 500 MG DR TABLET PO SCH ×3 (08:59→16:40)
[2016-09-05 16:10] VITALS: BP 116/84
[2016-09-05] MEDS: OLANZapine 10 MG TABLET PO SCH (20:33)
[2016-09-05] MEDS: HALOPERIDOL 5 MG TABLET PO SCH (20:33)
[2016-09-05] MEDS: ZOLPIDEM TARTRATE 10 MG TABLET PO PRN (21:20)
[2016-09-06 00:42] VITALS: BP 110/62
[2016-09-06 08:06] VITALS: BP 132/75
[2016-09-06] MEDS: DIVALPROEX SODIUM 500 MG DR TABLET PO SCH ×3 (08:39→16:52)
[2016-09-06] MEDS: NICOTINE 21 MG/24 HOUR PATCH TD SCH (08:39)
[2016-09-06 16:14] VITALS: BP 123/80
[2016-09-06] MEDS: LORazepam 2 MG TABLET PO PRN (18:07)
[2016-09-06] MEDS: OLANZapine 10 MG TABLET PO SCH (20:49)
[2016-09-06] MEDS: HALOPERIDOL 5 MG TABLET PO SCH (20:50)
[2016-09-07 05:16] VITALS: BP 110/67
[2016-09-07 08:07] VITALS: BP 106/61
[2016-09-07] MEDS: NICOTINE 21 MG/24 HOUR PATCH TD SCH (08:27)
[2016-09-07] MEDS: DIVALPROEX SODIUM 500 MG DR TABLET PO SCH ×3 (08:27→16:32)
[2016-09-07 16:05] VITALS: BP 114/62
[2016-09-07] MEDS: HALOPERIDOL 5 MG TABLET PO SCH (20:33)
[2016-09-07] MEDS: OLANZapine 10 MG TABLET PO SCH (20:33)
[2016-09-08 06:13] VITALS: BP 114/70
[2016-09-08 08:00] VITALS: BP 124/69
[2016-09-08] MEDS: NICOTINE 21 MG/24 HOUR PATCH TD SCH (08:47)
[2016-09-08] MEDS: DIVALPROEX SODIUM 500 MG DR TABLET PO SCH ×3 (08:47→16:36)
[2016-09-08 16:07] VITALS: BP 124/65
[2016-09-08] MEDS: HALOPERIDOL 5 MG TABLET PO SCH (20:17)
[2016-09-08] MEDS: OLANZapine 10 MG TABLET PO SCH (20:17)
[2016-09-08] MEDS: LORazepam 2 MG TABLET PO PRN (20:51)
[2016-09-09 06:06] VITALS: BP 106/64
[2016-09-09 08:22] VITALS: BP 108/65
[2016-09-09] MEDS: DIVALPROEX SODIUM 500 MG DR TABLET PO SCH ×3 (08:35→16:32)
[2016-09-09] MEDS: NICOTINE 21 MG/24 HOUR PATCH TD SCH (08:35)
[2016-09-09 16:09] VITALS: BP 125/60
[2016-09-09] MEDS: HALOPERIDOL 5 MG TABLET PO SCH (20:17)
[2016-09-09] MEDS: OLANZapine 10 MG TABLET PO SCH (20:17)
[2016-09-09] MEDS: LORazepam 2 MG TABLET PO PRN (20:44)
[2016-09-10 02:41] VITALS: BP 118/74
[2016-09-10 08:07] VITALS: BP 110/66
[2016-09-10] MEDS: NICOTINE 21 MG/24 HOUR PATCH TD SCH (08:37)
[2016-09-10] MEDS: DIVALPROEX SODIUM 500 MG DR TABLET PO SCH ×3 (08:37→16:21)
[2016-09-10 16:09] VITALS: BP 110/72
[2016-09-10] MEDS: HALOPERIDOL 5 MG TABLET PO SCH (20:21)
[2016-09-10] MEDS: OLANZapine 10 MG TABLET PO SCH (20:22)
[2016-09-11 05:31] VITALS: BP 101/77
[2016-09-11 08:06] VITALS: BP 123/83
[2016-09-11] MEDS: DIVALPROEX SODIUM 500 MG DR TABLET PO SCH ×3 (08:32→16:37)
[2016-09-11] MEDS: NICOTINE 21 MG/24 HOUR PATCH TD SCH (08:35)
[2016-09-11 16:49] VITALS: BP 113/67
[2016-09-11] MEDS: OLANZapine 10 MG TABLET PO SCH (20:38)
[2016-09-11] MEDS: HALOPERIDOL 5 MG TABLET PO SCH (20:38)
[2016-09-11] MEDS: ZOLPIDEM TARTRATE 10 MG TABLET PO PRN (21:42)
[2016-09-12 03:22] VITALS: BP 121/87
[2016-09-12 08:06] VITALS: BP 101/63
[2016-09-12] MEDS: NICOTINE 21 MG/24 HOUR PATCH TD SCH (08:45)
[2016-09-12] MEDS: DIVALPROEX SODIUM 500 MG DR TABLET PO SCH ×3 (08:45→16:35)
[2016-09-12 16:13] VITALS: BP 116/71
[2016-09-12] MEDS: HALOPERIDOL 5 MG TABLET PO SCH (20:42)
[2016-09-12] MEDS: OLANZapine 10 MG TABLET PO SCH (20:42)
[2016-09-13] MEDS: ZOLPIDEM TARTRATE 10 MG TABLET PO PRN (01:19)
[2016-09-13 06:16] VITALS: BP 100/70
[2016-09-13 08:07] VITALS: BP 119/75
[2016-09-13] MEDS: NICOTINE 21 MG/24 HOUR PATCH TD SCH (09:10)
[2016-09-13] MEDS: DIVALPROEX SODIUM 500 MG DR TABLET PO SCH ×3 (09:10→16:40)
[2016-09-13] MEDS: HALOPERIDOL 5 MG TABLET PO PRN (10:42)
[2016-09-13] MEDS: LORazepam 2 MG TABLET PO PRN (10:42)
[2016-09-13 16:15] VITALS: BP 109/83
[2016-09-13] MEDS: OLANZapine 10 MG TABLET PO SCH (21:08)
[2016-09-13] MEDS: HALOPERIDOL 5 MG TABLET PO SCH (21:09)
[2016-09-14 00:07] VITALS: BP 102/61
[2016-09-14 08:08] VITALS: BP 123/52
[2016-09-14] MEDS: DIVALPROEX SODIUM 500 MG DR TABLET PO SCH ×3 (08:57→18:44)
[2016-09-14] MEDS: NICOTINE 21 MG/24 HOUR PATCH TD SCH (08:57)
[2016-09-14] MEDS: LORazepam 2 MG TABLET PO PRN (12:50)
[2016-09-14] MEDS: HALOPERIDOL 5 MG TABLET PO PRN (13:25)
[2016-09-14 16:07] VITALS: BP 117/82
[2016-09-14] MEDS: HALOPERIDOL 5 MG TABLET PO SCH (20:30)
[2016-09-14] MEDS: OLANZapine 10 MG TABLET PO SCH (20:30)
[2016-09-15 04:50] VITALS: BP 123/82
[2016-09-15 08:07] VITALS: BP 125/82
[2016-09-15] MEDS: DIVALPROEX SODIUM 500 MG DR TABLET PO SCH ×3 (08:50→16:38)
[2016-09-15] MEDS: NICOTINE 21 MG/24 HOUR PATCH TD SCH (08:55)
[2016-09-15] MEDS: LORazepam 2 MG TABLET PO PRN (13:56)
[2016-09-15] MEDS: HALOPERIDOL 5 MG TABLET PO PRN (13:57)
[2016-09-15 16:09] VITALS: BP 130/79
[2016-09-15] MEDS: HALOPERIDOL 5 MG TABLET PO SCH (20:33)
[2016-09-15] MEDS: OLANZapine 10 MG TABLET PO SCH (20:34)
[2016-09-15] MEDS: ZOLPIDEM TARTRATE 10 MG TABLET PO PRN (20:57)
[2016-09-16 00:05] VITALS: BP 126/75
[2016-09-16 08:07] VITALS: BP 102/55
[2016-09-16] MEDS: DIVALPROEX SODIUM 500 MG DR TABLET PO SCH ×3 (08:50→16:37)
[2016-09-16] MEDS: NICOTINE 21 MG/24 HOUR PATCH TD SCH (08:51)
[2016-09-16 16:08] VITALS: BP 117/72
[2016-09-16] MEDS: HALOPERIDOL 5 MG TABLET PO SCH (20:45)
[2016-09-16] MEDS: OLANZapine 10 MG TABLET PO SCH (20:46)
[2016-09-16] MEDS: ZOLPIDEM TARTRATE 10 MG TABLET PO PRN (21:23)
[2016-09-17 00:05] VITALS: BP 115/70
[2016-09-17 08:06] VITALS: BP 109/60
[2016-09-17] MEDS: NICOTINE 21 MG/24 HOUR PATCH TD SCH (08:50)
[2016-09-17] MEDS: DIVALPROEX SODIUM 500 MG DR TABLET PO SCH ×3 (08:50→16:38)
[2016-09-17] MEDS: LORazepam 2 MG TABLET PO PRN (08:50)
[2016-09-17 16:06] VITALS: BP 117/82
[2016-09-17] MEDS: OLANZapine 10 MG TABLET PO SCH (20:36)
[2016-09-17] MEDS: HALOPERIDOL 5 MG TABLET PO SCH (20:37)
[2016-09-17] MEDS: ZOLPIDEM TARTRATE 10 MG TABLET PO PRN (21:33)
[2016-09-18 00:28] VITALS: BP 101/60
[2016-09-18 08:06] VITALS: BP 100/57
[2016-09-18] MEDS: NICOTINE 21 MG/24 HOUR PATCH TD SCH (08:34)
[2016-09-18] MEDS: DIVALPROEX SODIUM 500 MG DR TABLET PO SCH ×3 (08:34→16:32)
[2016-09-18 16:31] VITALS: BP 113/66
[2016-09-18] MEDS: HALOPERIDOL 5 MG TABLET PO SCH (20:34)
[2016-09-18] MEDS: OLANZapine 10 MG TABLET PO SCH (20:34)
[2016-09-18] MEDS: ZOLPIDEM TARTRATE 10 MG TABLET PO PRN (21:23)
[2016-09-19 01:26] VITALS: BP 103/58
[2016-09-19 08:05] VITALS: BP 111/68
[2016-09-19] MEDS: NICOTINE 21 MG/24 HOUR PATCH TD SCH (08:14)
[2016-09-19] MEDS: DIVALPROEX SODIUM 500 MG DR TABLET PO SCH ×3 (08:14→16:42)
[2016-09-19] MEDS: LORazepam 2 MG TABLET PO PRN ×2 (09:21→18:46)
[2016-09-19 16:13] VITALS: BP 110/66
[2016-09-19] MEDS: HALOPERIDOL 5 MG TABLET PO SCH (20:31)
[2016-09-19] MEDS: OLANZapine 10 MG TABLET PO SCH (20:32)
[2016-09-19] MEDS: ZOLPIDEM TARTRATE 10 MG TABLET PO PRN (21:08)
[2016-09-20 06:49] VITALS: BP 103/64
[2016-09-20 08:14] VITALS: BP 106/63
[2016-09-20] MEDS: DIVALPROEX SODIUM 500 MG DR TABLET PO SCH ×3 (08:56→16:32)
[2016-09-20] MEDS: NICOTINE 21 MG/24 HOUR PATCH TD SCH (08:56)
[2016-09-20] MEDS: LORazepam 2 MG TABLET PO PRN (10:33)
[2016-09-20] MEDS: HALOPERIDOL 5 MG TABLET PO PRN (13:20)
[2016-09-20 16:09] VITALS: BP 112/63
[2016-09-20] MEDS: HALOPERIDOL 5 MG TABLET PO SCH (20:33)
[2016-09-20] MEDS: OLANZapine 10 MG TABLET PO SCH (20:34)
[2016-09-20] MEDS: ZOLPIDEM TARTRATE 10 MG TABLET PO PRN (21:13)
[2016-09-21 03:34] VITALS: BP 106/69
[2016-09-21] MEDS: DIVALPROEX SODIUM 500 MG DR TABLET PO SCH ×3 (08:49→16:58)
[2016-09-21] MEDS: NICOTINE 21 MG/24 HOUR PATCH TD SCH (08:49)
[2016-09-21 08:56] VITALS: BP 100/63
[2016-09-21 16:06] VITALS: BP 106/53
[2016-09-21] MEDS: OLANZapine 10 MG TABLET PO SCH (20:14)
[2016-09-21] MEDS: HALOPERIDOL 5 MG TABLET PO SCH (20:14)
[2016-09-21] MEDS: ZOLPIDEM TARTRATE 10 MG TABLET PO PRN (22:44)
[2016-09-22 00:07] VITALS: BP 110/61
[2016-09-22 08:07] VITALS: BP 115/68
[2016-09-22] MEDS: DIVALPROEX SODIUM 500 MG DR TABLET PO SCH ×3 (08:42→16:25)
[2016-09-22] MEDS: NICOTINE 21 MG/24 HOUR PATCH TD SCH (08:42)
[2016-09-22 16:08] VITALS: BP 138/74
[2016-09-22] MEDS: LORazepam 2 MG TABLET PO PRN (17:20)
[2016-09-22] MEDS: HALOPERIDOL 5 MG TABLET PO SCH (20:08)
[2016-09-22] MEDS: OLANZapine 10 MG TABLET PO SCH (20:09)
[2016-09-23 00:07] VITALS: BP 111/66
[2016-09-23 08:07] VITALS: BP 130/64
[2016-09-23] MEDS: DIVALPROEX SODIUM 500 MG DR TABLET PO SCH ×3 (08:54→16:15)
[2016-09-23] MEDS: NICOTINE 21 MG/24 HOUR PATCH TD SCH (08:54)
[2016-09-23 16:07] VITALS: BP 123/77
[2016-09-23] MEDS: LORazepam 2 MG TABLET PO PRN (16:15)
[2016-09-23] MEDS: OLANZapine 10 MG TABLET PO SCH (20:14)
[2016-09-23] MEDS: HALOPERIDOL 5 MG TABLET PO SCH (20:15)
[2016-09-23] MEDS: ZOLPIDEM TARTRATE 10 MG TABLET PO PRN (20:59)
[2016-09-24] VITALS: BP 122/75
[2016-09-24 08:19] VITALS: BP 103/62
[2016-09-24] MEDS: NICOTINE 21 MG/24 HOUR PATCH TD SCH (09:05)
[2016-09-24] MEDS: DIVALPROEX SODIUM 500 MG DR TABLET PO SCH ×2 (09:05→13:00)
[2016-09-24] MEDS ORDERED: HALO5 PO (10:13)
== END 2016-09-24 14:40 | DRG 885 ==
LOC: B2X 14:51
PROVIDERS: ADMIT Psychiatry & Neurology Psychiatry; ATTEND Psychiatry & Neurology Psychiatry
PROC: 3E0234Z Introduction of Serum, Toxoid and Vaccine into Muscle, Percutaneous Approach (ICD-10-PCS; principal; 2016-08-14)
PROC: 3E0234Z Introduction of Serum, Toxoid and Vaccine into Muscle, Percutaneous Approach (ICD-10-PCS; 2016-08-14)
DX: F20.0 Paranoid schizophrenia (principal); J44.9 Chronic obstructive pulmonary disease, unspecified; K21.9 Gastro-esophageal reflux disease without esophagitis; F19.10 Other psychoactive substance abuse, uncomplicated; F99 Mental disorder, not otherwise specified; Z72.89 Other problems related to lifestyle; Z23 Encounter for immunization; Z71.51 Drug abuse counseling and surveillance of drug abuser; Z79.899 Other long term (current) drug therapy
CPT/HCPCS: 87081; 90471; J1200; J1630; J2060